=== PATIENT | female | born 1945 | race Caucasian/White ===

== ENCOUNTER → 2016-09-14 | Outpatient (CLI) | payer OTHER ==
[~2016-09-14] MED LIST: REGADENOSON 0.4 MG/5 ML PF SYRINGE IVP ONE; SESTAMIBI TC99M/UD ISOTOPE 1 EA INJ INJ ONE
[2016-09-14 08:50] VITALS: BP 115/61
[2016-09-14 09:26] VITALS: BP 114/49
== END | disposition home or self-care (01) ==
LOC: CARDMN 08:38
PROVIDERS: ATTEND Internal Medicine Cardiovascular Disease
DX: I25.9 Chronic ischemic heart disease, unspecified (principal); I50.1 Left ventricular failure, unspecified
CPT/HCPCS: 78452; 93017; 93306; A9500